=== PATIENT | male | born 1945 | race Two or more races ===

== ENCOUNTER 2022-10-01 12:13 | Inpatient (IN) | payer MEDICARE ==
--- NOTE | 2022-10-01 13:26 | ED ---
ENT HPI - General Source: patient, RN notes reviewed Mode of arrival: ambulatory Limitations: no limitations <Chema Pedro - Last Filed: 10/01/22 15:08> <Redd Miller - Last Filed: 10/01/22 16:08> - General Chief complaint: Dental/Oral Stated complaint: dental infection Time Seen by Provider: 10/01/22 13:11 - History of Present Illness Initial comments: Patient is a 77 year old male presenting to the ER with a chief complaint of right sided facial swelling and pain. Patient had a molar removed last week and now has a dry socket. Patient states his dentist, Dr. Jimenez, has packed it twice and treated him with 2 rounds of clindamycin with no relief. Patient has also been taking [place] for pain. Patient states last night he was barley able to open his mouth to eat due to pain. Patient denies trouble breathing but does admit to difficulty swallowing liquids. Patient also endorses associated chills last night. Denies fevers. Patient was seen in Dr. Jimenez's office today and received an xray and was then referred to the ER for evaluation. (Chema Pedro) - Related Data Allergies Allergy/AdvReac Type Severity Reaction Status Date / Time Penicillins Allergy Unknown Verified 10/01/22 15:31 Childhood Review of Systems ROS Other: All systems not noted in ROS Statement are negative. <Chema Pedro - Last Filed: 10/01/22 15:08> ROS Other: All systems not noted in ROS Statement are negative. <Redd Miller - Last Filed: 10/01/22 16:08> ROS Statement: Those systems with pertinent positive or pertinent negative responses have been documented in the HPI. Past Medical History Past Medical History: Diabetes Mellitus, Hyperlipidemia, Hypertension, Osteoarthritis (OA) History of Any Multi-Drug Resistant Organisms: None Reported Past Surgical History: No Surgical Hx Reported Past Psychological History: No Psychological Hx Reported Smoking Status: Never smoker Past Alcohol Use History: None Reported Past Drug Use History: None Reported <Chema Pedro - Last Filed: 10/01/22 15:08> General Exam Limitations: no limitations General appearance: alert, in no apparent distress Head exam: Present: atraumatic, normocephalic, normal inspection Eye exam: Present: normal appearance, PERRL, EOMI. Absent: scleral icterus, conjunctival injection, periorbital swelling ENT exam: Present: mucous membranes dry Neck exam: Present: tenderness, other (right sided edema; hard tender mass noted under mandible on right side) Respiratory exam: Present: normal lung sounds bilaterally. Absent: respiratory distress, wheezes, rales, rhonchi, stridor Cardiovascular Exam: Present: regular rate, normal rhythm, normal heart sounds. Absent: systolic murmur, diastolic murmur, rubs, gallop, clicks GI/Abdominal exam: Present: soft, normal bowel sounds. Absent: distended, tenderness, guarding, rebound, rigid Extremities exam: Present: normal inspection, full ROM, normal capillary refill. Absent: tenderness, pedal edema, joint swelling, calf tenderness Back exam: Present: normal inspection Neurological exam: Present: alert, oriented X3, CN II-XII intact Psychiatric exam: Present: normal affect, normal mood Skin exam: Present: warm, dry, intact, normal color. Absent: rash <Chema Pedro - Last Filed: 10/01/22 15:08> Course Vital Signs 10/01/22 13:07 Temperature 98 F Pulse Rate 87 Respiratory 18 Rate Blood Pressure 141/75 O2 Sat by Pulse 96 Oximetry Medical Decision Making - Lab Data Result diagrams: 10/01/22 13:54 10/01/22 13:54 <Chema Pedro - Last Filed: 10/01/22 15:08> - Lab Data Result diagrams: 10/01/22 13:54 10/01/22 13:54 - Radiology Data Radiology results: report reviewed (CT shows soft tissue swelling right submandibular region concerning for phlegmon.) <Redd Miller - Last Filed: 10/01/22 16:08> - Medical Decision Making 77-year-old sent in for admission for recurrent thoracic, dental infection. Patient's case discussed with Dr. Jasso, patient was started on cefepime, v ancomycin patient with consult to oral surgery (Chema Pedro) I did also reevaluate the patient. Patient swelling is right submandibular region. No midline swelling. No submental swelling or tenderness or firmness. No evidence of airway impingement clinically. Patient is advised to notify staff if symptoms appear to be worsening at all. Patient states symptoms are ac tually significantly improved from yesterday. (Redd Miller) - Lab Data Lab Results 10/01/22 10/01/22 10/01/22 Range/Units 13:54 13:54 13:54 WBC 15.3 H (3.8-10.6) k/uL RBC 4.71 (4.30-5.90) m/uL Hgb 14.1 (13.0-17.5) gm/dL Hct 42.3 (39.0-53.0) % MCV 89.7 (80.0-100.0) fL MCH 29.9 (25.0-35.0) pg MCHC 33.3 (31.0-37.0) g/dL RDW 14.0 (11.5-15.5) % Plt Count 306 (150-450) k/uL MPV 7.9 Neutrophils % 86 % Lymphocytes % 7 % Monocytes % 5 % Eosinophils % 1 % Basophils % 0 % Neutrophils # 13.0 H (1.3-7.7) k/uL Lymphocytes # 1.1 (1.0-4.8) k/uL Monocytes # 0.7 (0-1.0) k/uL Eosinophils # 0.1 (0-0.7) k/uL Basophils # 0.0 (0-0.2) k/uL Sodium 140 (137-145) mmol/L Potassium 4.1 (3.5-5.1) mmol/L Chloride 104 (98-107) mmol/L Carbon Dioxide 27 (22-30) mmol/L Anion Gap 9 mmol/L BUN 27 H (9-20) mg/dL Creatinine 1.22 (0.66-1.25) mg/dL Est GFR (CKD-EPI)AfAm 67 (>60 ml/min/1.73 sqM) Est GFR (CKD-EPI)NonAf 58 (>60 ml/min/1.73 sqM) Glucose 170 H (74-99) mg/dL Plasma Lactic Acid Brady 1.0 (0.7-2.0) mmol/L Calcium 9.2 (8.4-10.2) mg/dL Total Bilirubin 0.6 (0.2-1.3) mg/dL AST 27 (17-59) U/L ALT 32 (4-49) U/L Alkaline Phosphatase 81 (38-126) U/L Total Protein 6.6 (6.3-8.2) g/dL Albumin 4.0 (3.5-5.0) g/dL Disposition Time of Disposition: 14:34 <Chema Pedro - Last Filed: 10/01/22 15:08> <Redd Miller - Last Filed: 10/01/22 16:08> Clinical Impression: Dental abscess, Failure of outpatient treatment, Dry socket Disposition: ADMITTED IP TO THIS HOSP Condition: Fair
[2022-10-01 14:27] LABS: Basophils % (A) 0 %; Eosinophils # (A) 0.1 k/uL (0-0.7); Eosinophils % (A) 1 %; HCT 42.3 % (39.0-53.0); HGB 14.1 gm/dL (13.0-17.5); Lymphocytes # (A) 1.1 k/uL (1.0-4.8); Lymphocytes % (A) 7 %; MCH 29.9 pg (25.0-35.0); MCHC 33.3 g/dL (31.0-37.0); MCV 89.7 fL (80.0-100.0); Mean Platelet Volume 7.9; Monocytes # (A) 0.7 k/uL (0-1.0); Monocytes % (A) 5 %; Neutrophils % (A) 86 %; Platelet Count 306 k/uL (150-450); RBC 4.71 m/uL (4.30-5.90); WBC 15.3 k/uL (3.8-10.6)
[2022-10-01 14:47] LABS: Calcium 9.2 mg/dL (8.4-10.2); Potassium 4.1 mmol/L (3.5-5.1); Total Bilirubin 0.6 mg/dL (0.2-1.3); Total Protein 6.6 g/dL (6.3-8.2)
[2022-10-01] MEDS ORDERED: VANCOMYCIN IV PER PHARMACY 1 EACH MISC MISCELLANE PRN (15:08)
[2022-10-01] MEDS ORDERED: ACETAMINOPHEN TAB 325 MG TAB PO PRN (15:09)
[2022-10-01] MEDS ORDERED: ONDANSETRON 4 MG/2 ML VIAL IVP PRN (15:09)
[2022-10-01] MEDS ORDERED: HYDROcodone/APAP 5-325MG 1 EACH TAB PO PRN (15:09)
[2022-10-01] MEDS ORDERED: NALOXONE 0.4 MG/ML 1 ML VIAL IV PRN (15:09)
--- NOTE | 2022-10-01 15:32 | CT ---
EXAMINATION TYPE: CT soft tissue neck w con DATE OF EXAM: 10/01/2022 COMPARISON: None HISTORY: Dental abscess, dry socket CT DLP: 246.8 mGycm CONTRAST: Patient injected with 80 mL of Isovue 300. TECHNIQUE: Axial images at 3 mm thick sections. Reconstructed images in the coronal plane and sagitt al plane are reviewed. FINDINGS: Limited CT sections are obtained the lung apices. The lung apices appear clear. CT neck: The torus tubarius and fossa of Rosenmuller are normal. Telephone Order Supervisor spaces are normal. Para nasal sinuses and mastoid air cells are clear. Parotid glands appear normal and symmetrical. Submandibular glands, are normal. Parapharyngeal spac es are normal. Scattered bilateral lymph nodes are present There is some enlarged adenopathy within the submandibular region which measures 1.0 cm. This is just below a soft tissue area of thickening with some displacement of the fat space of the submental chong on. This area measures approximately 2.5 x 4.7 cm. No central fluid collection is evident. Phlegmon c onsidered. Correlate with the patient's symptoms. This appears to have mild mass effect on the hypoph arynx. Vocal cord level appear symmetrical. Thyroid as visualized is normal. Osseous structures are normal. IMPRESSIONS: 1. Soft tissue thickening along the submandibular region on the right adjacent to the mandible. Corre late for phlegmon. Report was called and case discussed with the ER physician by Dr. Morgan by adeola townsend at the time of interpretation.
[2022-10-01] MEDS ORDERED: VANCOMYCIN 1,500 MG in SODIUM CHLORIDE 0.9% 500 ML 500 ML IVPB ONE (16:00)
[2022-10-01] MEDS ORDERED: CALCIUM CARBONATE 500 MG CHEWABLE PO PRN (16:45)
[2022-10-01] MEDS ORDERED: LACTULOSE 20 GM/30 ML CUP PO PRN (16:45)
[2022-10-01] MEDS ORDERED: TEMAZEPAM 15 MG CAP PO PRN (16:45)
[2022-10-01] MEDS ORDERED: DEXTROSE 50% SYRINGE 50 ML IVP PRN ×2 (16:46)
[2022-10-01 18:06] LABS: Glucose,Whole Blood 281 mg/dL (70-110)
[2022-10-01] MEDS: metFORMIN 500 MG TAB PO SCH ×2 (18:20→21:51)
[2022-10-01] MEDS: ENOXAPARIN 40 MG/0.4 ML SYRINGE SQ SCH (18:20)
[2022-10-01] MEDS: NAPROXEN 250 MG TAB PO SCH ×2 (18:20→21:51)
[2022-10-01] MEDS: INSULIN ASPART (NovoLOG) 100 UNIT/ML VIAL SQ SCH (18:21)
[2022-10-01 20:34] LABS: Glucose,Whole Blood 80 mg/dL (70-110)
[2022-10-01] MEDS ORDERED: CEFEPIME 2 GM in SODIUM CHLORIDE 0.9% 100 ML IVPB SCH (21:00)
[2022-10-02 07:14] LABS: Glucose,Whole Blood 105 mg/dL (70-110)
[2022-10-02] MEDS: INSULIN ASPART (NovoLOG) 100 UNIT/ML VIAL SQ SCH ×3 (08:32→17:25)
[2022-10-02] MEDS: lisinopriL 20 MG TAB PO SCH (08:48)
[2022-10-02] MEDS: ASPIRIN 81 MG PO SCH (08:48)
[2022-10-02] MEDS: ATORVASTATIN 20 MG TAB PO SCH (08:48)
[2022-10-02] MEDS: CEFEPIME 2 GM in SODIUM CHLORIDE 0.9% 100 ML IVPB SCH ×2 (08:49→16:16)
[2022-10-02] MEDS: metFORMIN 500 MG TAB PO SCH ×3 (08:49→21:46)
[2022-10-02] MEDS: FOLIC ACID 1 MG TAB PO SCH (08:49)
[2022-10-02] MEDS: amLODIPine 10 MG TAB PO SCH (08:49)
[2022-10-02] MEDS: NAPROXEN 250 MG TAB PO SCH ×3 (08:50→21:46)
[2022-10-02] MEDS: VANCOMYCIN 1,500 MG in SODIUM CHLORIDE 0.9% 500 ML 500 ML IVPB SCH (08:50)
[2022-10-02] MEDS: ENOXAPARIN 40 MG/0.4 ML SYRINGE SQ SCH (09:28)
[2022-10-02 11:20] LABS: Glucose,Whole Blood 165 mg/dL (70-110)
[2022-10-02] MEDS ORDERED: MELATONIN 3 MG TABLET PO PRN (11:59)
--- NOTE | 2022-10-02 16:11 | P.HPIM ---
History of Present Illness H&P Date: 10/02/22 Chief Complaint: Right face swelling This is a 77-year-old patient who follows with Dr. Po Schumacher. Chronic stable medical conditions include diabetes, hypertension, hyperlipidemia, osteoarthritis. Patient on the right side of the mouth had his tooth #31 diagnosed with a crack and had it pulled 2 weeks ago by . He's had 2 follow-up cesareans. Including packing been dense. About 10 days ago he startedseeing of swelling of the right side of the face. We just progressively became more painful. He's had chills at night including shivering and perspiring. He did having trouble eating and opening his mouth. He's received a course of clindamycin as outpatient. He did have a further follow-up with his dianeticist and was then sent to the ER. I started the patient IV vancomycin and cefepime. Also started him on naproxen. Overnight patient's feeling a bit better unable to open his mouth. He was barely able to eat prior to that. Did tolerate a soft breakfast this morning. Review of systems: GEN.: Tired EYES: None HEENT: As above NECK: None RESPIRATORY: None CARDIOVASCULAR: None GASTROINTESTINAL: None GENITOURINARY: None MUSCULOSKELETAL: Joint pains LYMPHATICS: None HEMATOLOGICAL: None PSYCHIATRY: None NEUROLOGICAL: None Past medical history to include: Diabetes, hypertension, hyperlipidemia, stroke arthritis. Social history: Patient does not smoke or drink alcohol. . Is a practicing transactional attorney. Family history: Reviewed, noncontributory to presentation Physical examination: VITAL SIGNS: 97.7, 65, 17, 144/87, 97% room air GENERAL: BMI 23.1, average build, reclining in bed, awake, comfortable. EYES: Pupils equal. Conjunctiva normal. HEENT: From swelling below the right mandible, tender also from inside the mouth.. NECK: JVD not raised; masses not palpable. HEART: First and second heart sounds are normal; no edema. LUNGS: Respiratory rate normal; clear to auscultation. ABDOMEN: Soft, nontender, liver spleen not palpable, no masses palpable. PSYCH: Alert and oriented x3; mood and affect normal. MUSCULOSKELETAL:No Clubbing/cyanosis;muscles-grossly intact, oa NEUROLOGICAL: Cranial nerves grossly intact; no facial asymmetry, power and sensation grossly intact. LYMPHATICS: No lymph nodes palpable in the axilla and neck INVESTIGATIONS, reviewed in the clinical context: White count 15.3 hemoglobin 14.1 platelets 306 potassium 4.1 BUN 27 creatinine 1.2 to pro-calcitonin 0.[address] submandibular area: Soft tissue thickening along the submandibular region of the right adjacent to the mandible correlate for phlegmon. Assessment and plan: -Probable phlegmon at the site of extracted tooth 31 that had a fractured wrist. 2 weeks ago by . Patient had received outpatient clindamycin. Patient had progressed to increased swelling and chills at night. Patient does have elevated white count. Patient started IV vancomycin and IV cefepime. Blood cultures pending. Dr. Jimenez's been consulted. Soft diet -Essential hypertension Norvasc, ramipril Hyperlipidemia Lipitor -Diabetes mellitus type 2 on oral hypoglycemic Glucophage. Follow Accu-Cheks IV vancomycin. IV cefepime. Naproxen. IV fluids. Resume home medications. Follow Accu-Cheks. Consult Dr. mart. Care was discussed with the patient. Questions answered. Past Medical History Past Medical History: Diabetes Mellitus, Hyperlipidemia, Hypertension, Osteoart hritis (OA) History of Any Multi-Drug Resistant Organisms: None Reported Past Surgical History: Appendectomy, Tonsillectomy Past Anesthesia/Blood Transfusion Reactions: No Reported Reaction Past Psychological History: No Psychological Hx Reported Smoking Status: Never smoker Past Alcohol Use History: None Reported Past Drug Use History: None Reported Medications and Allergies Home Medications Medication Instructions Recorded Confirmed Type Acetaminophen-Codeine 300-30mg 1 tab PO Q4H PRN 10/01/22 10/01/22 History [Tylenol w/codeine #3] Aspirin EC [Ecotrin Low Dose] 81 mg PO DAILY 10/01/22 10/01/22 History Atorvastatin [Lipitor] 20 mg PO DAILY 10/01/22 10/01/22 History Folic Acid 1 mg PO DAILY 10/01/22 10/01/22 History Ibuprofen [Motrin Ib] 600 mg PO Q8H PRN 10/01/22 10/01/22 History amLODIPine [Norvasc] 10 mg PO DAILY 10/01/22 10/01/22 History clindamycin HCL [Cleocin HCl] 300 mg PO TID 10/01/22 10/01/22 History metFORMIN HCL ER [Glucophage XR] 500 mg PO TID 10/01/22 10/01/22 History metHOTREXate sodium [Methotrexate] 10 mg PO EDDY 10/01/22 10/01/22 History ramipriL [Altace] 10 mg PO BID 10/01/22 10/01/22 History Allergies Allergy/AdvReac Type Severity Reaction Status Date / Time Penicillins Allergy Unknown Verified 10/01/22 15:31 Childhood Physical Exam Vitals: Vital Signs Temp Pulse Pulse Resp BP BP Pulse Ox 10/02/22 07:39 97.7 F 65 17 144/87 97 10/02/22 04:25 97.4 F L 74 16 129/78 94 L 10/01/22 19:10 98.5 F 86 16 123/77 96 10/01/22 16:31 87 15 144/84 97 10/01/22 13:07 98 F 87 18 141/75 96 Intake and Output 10/01/22 10/02/22 10/02/22 22:59 06:59 14:59 Intake Total 120 Output Total 2 Balance 120 -2 Intake: Oral 120 Output: Urine 2 Other: Weight 77.111 kg Results CBC & Chem 7: 10/01/22 13:54 10/02/22 05:48 Labs: Abnormal Lab Results - Last 24 Hours (Table) 10/01/22 10/01/22 10/01/22 Range/Units 13:54 13:54 18:05 WBC 15.3 H (3.8-10.6) k/uL Neutrophils # 13.0 H (1.3-7.7) k/uL BUN 27 H (9-20) mg/dL Glucose 170 H (74-99) mg/dL POC Glucose (mg/dL) 281 H (70-110) mg/dL Procalcitonin (0.02-0.09) ng/mL 10/02/22 Range/Units 05:48 WBC (3.8-10.6) k/uL Neutrophils # (1.3-7.7) k/uL BUN (9-20) mg/dL Glucose (74-99) mg/dL POC Glucose (mg/dL) (70-110) mg/dL Procalcitonin 0.46 H (0.02-0.09) ng/mL Thrombosis Risk Factor Assmnt - Choose All That Apply Any of the Below Risk Factors Present?: No Other Risk Factors: Yes Each Risk Factor Represents 2 Points: Age 61-74 years Other congenital or acquired thrombophilia - If yes, enter type in comment: No Thrombosis Risk Factor Assessment Total Risk Factor Score: 2 Thrombosis Risk Factor Assessment Level: Low Risk
[2022-10-02] MEDS: SODIUM CHLORIDE 0.9% 1,000 ML IV SCH (16:18)
[2022-10-02 17:14] LABS: Glucose,Whole Blood 122 mg/dL (70-110)
[2022-10-02 20:08] LABS: Glucose,Whole Blood 174 mg/dL (70-110)
[2022-10-03] MEDS: CEFEPIME 2 GM in SODIUM CHLORIDE 0.9% 100 ML IVPB SCH ×4 (00:01→23:55)
[2022-10-03] MEDS: VANCOMYCIN 1,500 MG in SODIUM CHLORIDE 0.9% 500 ML 500 ML IVPB SCH ×3 (00:01→23:54)
[2022-10-03] MEDS: SODIUM CHLORIDE 0.9% 1,000 ML IV SCH ×4 (00:01→23:30)
[2022-10-03 04:12] LABS: African American GFR (CKD) 90 (>60 ml/min/1.73 sqM); Anion Gap 5 mmol/L; Blood Urea Nitrogen 20 mg/dL (9-20); Calcium 7.9 mg/dL (8.4-10.2); Carbon Dioxide 27 mmol/L (22-30); Chloride 107 mmol/L (98-107); Glucose 89 mg/dL (74-99); Non-African American GFR(CKD) 78 (>60 ml/min/1.73 sqM); Sodium 139 mmol/L (137-145)
[2022-10-03 07:12] LABS: Glucose,Whole Blood 98 mg/dL (70-110)
[2022-10-03] MEDS: INSULIN ASPART (NovoLOG) 100 UNIT/ML VIAL SQ SCH ×3 (07:46→17:11)
[2022-10-03] MEDS: amLODIPine 10 MG TAB PO SCH (08:13)
[2022-10-03] MEDS: metFORMIN 500 MG TAB PO SCH ×3 (08:13→21:03)
[2022-10-03] MEDS: FOLIC ACID 1 MG TAB PO SCH (08:13)
[2022-10-03] MEDS: lisinopriL 20 MG TAB PO SCH (08:13)
[2022-10-03] MEDS: ATORVASTATIN 20 MG TAB PO SCH (08:13)
[2022-10-03] MEDS: ENOXAPARIN 40 MG/0.4 ML SYRINGE SQ SCH (08:13)
[2022-10-03] MEDS: ASPIRIN 81 MG PO SCH (08:13)
[2022-10-03] MEDS: NAPROXEN 250 MG TAB PO SCH ×3 (08:14→21:02)
[2022-10-03 11:08] LABS: Glucose,Whole Blood 99 mg/dL (70-110)
--- NOTE | 2022-10-03 16:33 | P.PN ---
Progress Note - Text Progress Note Date: 10/03/22 Chief Complaint: Right face swelling This is a 77-year-old patient who follows with Dr. Po Schumacher. Chronic stable medical conditions include diabetes, hypertension, hyperlipidemia, osteoarthritis. Patient on the right side of the mouth had his tooth #31 diagnosed with a crack and had it pulled 2 weeks ago by . He's had 2 follow-up cesareans. Including packing been dense. About 10 days ago he startedseeing of swelling of the right side of the face. We just progressively became more painful. He's had chills at night including shivering and perspiring. He did having trouble eating and opening his mouth. He's received a course of clindamycin as outp atient. He did have a further follow-up with his medical assisting instructor and was then sent to the ER. I started the patient IV vancomycin and cefepime. Also started him on naproxen. Overnight patient's feeling a bit better unable to open his mouth. He was barely able to eat prior to that. Did tolerate a soft breakfast this morning. 10/03/2022: Feeling better this morning. No fever. Tolerating a soft diet. He would open his mouth better. Was seen by Dr. mart last night. I discussed the case with Dr. mart last night. Getting IV cefepime and vancomycin. Cultures negative to rule out. Right facial jaw swelling going down. Active Medications Acetaminophen (Acetaminophen Tab 325 Mg Tab) 650 mg PO Q6HR PRN PRN Reason: Mild Pain or Fever > 100.5 Hydrocodone Bitart/Acetaminophen (Hydrocodone/Apap 5-325mg 1 Each Tab) 1 each PO Q4HR PRN PRN Reason: Moderate Pain (Scale 4 to 6) Amlodipine Besylate (Amlodipine 10 Mg Tab) 10 mg PO DAILY [facility] Last Admin: 10/03/22 08:13 Dose: 10 mg Aspirin (Aspirin 81 Mg) 81 mg PO DAILY [facility] Last Admin: 10/03/22 08:13 Dose: 81 mg Atorvastatin Calcium (Atorvastatin 20 Mg Tab) 20 mg PO DAILY [facility] Last Admin: 10/03/22 08:13 Dose: 20 mg Calcium Carbonate/Glycine (Calcium Carbonate 500 Mg Chewable) 1,000 mg PO Q4HR PRN PRN Reason: Dyspepsia Dextrose/Water (Dextrose 50% Syringe 50 Ml) 25 ml IVP PER PROTOCOL PRN; Protocol PRN Reason: Hypoglycemia Dextrose/Water (Dextrose 50% Syringe 50 Ml) 50 ml IVP PER PROTOCOL PRN; Protocol PRN Reason: Hypoglycemia Enoxaparin Sodium (Enoxaparin 40 Mg/0.4 Ml Syringe) 40 mg SQ DAILY [facility] Last Admin: 10/03/22 08:13 Dose: 40 mg Folic Acid (Folic Acid 1 Mg Tab) 1 mg PO DAILY [facility] Last Admin: 10/03/22 08:13 Dose: 1 mg Cefepime HCl 2 gm/ Sodium (Chloride) 100 mls @ 25 mls/hr IVPB Q8HR [facility]; Protocol Last Admin: 10/03/22 08:11 Dose: 25 mls/hr Sodium Chloride (Saline 0.9%) 1,000 mls @ 130 mls/hr IV .Q7H42M [facility] Last Admin: 10/03/22 16:30 Dose: Not Given Vancomycin HCl 1,500 mg/ (Sodium Chloride) 500 mls @ 167 mls/hr IVPB Q12H [facility] Last Admin: 10/03/22 11:32 Dose: 167 mls/hr Insulin Aspart (Insulin Aspart (Novolog) 100 Unit/Ml Vial) 0 unit SQ AC-TID [facility]; Protocol Last Admin: 10/03/22 11:29 Dose: Not Given Lactulose (Lactulose 20 Gm/30 Ml Cup) 20 gm PO DAILY PRN PRN Reason: Constipation Lisinopril (Lisinopril 20 Mg Tab) 80 mg PO DAILY [facility] Last Admin: 10/03/22 08:13 Dose: 80 mg Melatonin (Melatonin 3 Mg Tablet) 3 mg PO HS PRN PRN Reason: Insomnia Last Admin: 10/02/22 21:47 Dose: 3 mg Metformin HCl (Metformin 500 Mg Tab) 500 mg PO TID [facility] Last Admin: 10/03/22 15:19 Dose: 500 mg Methotrexate (Methotrexate Sodium 2.5 Mg Tab) 10 mg PO EDDY [facility] Miscellaneous Information (Vancomycin Trough Due 1 Each Misc) 0 each MISCELLANE DIRECTED ONE Stop: 10/03/22 23:01 Naloxone HCl (Naloxone 0.4 Mg/Ml 1 Ml Vial) 0.2 mg IV Q2M PRN PRN Reason: Opioid Reversal Naproxen (Naproxen 250 Mg Tab) 250 mg PO TID [facility] Last Admin: 10/03/22 15:43 Dose: 250 mg Ondansetron HCl (Ondansetron 4 Mg/2 Ml Vial) 4 mg IVP Q8HR PRN PRN Reason: Nausea And Vomiting Temazepam (Temazepam 15 Mg Cap) 15 mg PO HS PRN PRN Reason: Insomnia Past medical history to include: Diabetes, hypertension, hyperlipidemia, stroke arthritis. Social history: Patient does not smoke or drink alcohol. . Is a practicing estate attorney. Family history: Reviewed, noncontributory to presentation Physical examination: VITAL SIGNS: Afebrile, 65, 17, 161/81, 96% room air GENERAL: BMI 23.1, average build, reclining in bed, awake, comfortable. EYES: Pupils equal. Conjunctiva normal. HEENT: Decreased firm swelling below the right mandible, tender also from inside the mouth.. NECK: JVD not raised; masses not palpable. HEART: First and second heart sounds are normal; no edema. LUNGS: Respiratory rate normal; clear to auscultation. ABDOMEN: Soft, nontender, liver spleen not palpable, no masses palpable. PSYCH: Alert and oriented x3; mood and affect normal. MUSCULOSKELETAL:No Clubbing/cyanosis;muscles-grossly intact, oa INVESTIGATIONS, reviewed in the clinical context: 10/03/2022: Potassium 4. 20 creatinine 0.96 White count 15.3 hemoglobin 14.1 platelets 306 potassium 4.1 BUN 27 creatinine 1.2 to pro-calcitonin 0.[address] submandibular area: Soft tissue thickening along the submandibular region of the right adjacent to the mandible correlate for phlegmon. Assessment and plan: -Probable phlegmon at the site of extracted tooth 31 that had a fractured wrist. 2 weeks ago by . Patient had received outpatient clindamycin. Patient had progressed to increased swelling and chills at night. Patient does have elevated white count. IV vancomycin and IV cefepime. Blood cultures pending.: Improving -Essential hypertension Norvasc, ramipril Hyperlipidemia Lipitor -Diabetes mellitus type 2 on oral hypoglycemic Glucophage. Follow Accu-Cheks IV vancomycin. IV cefepime. Naproxen. IV fluids. Discussed with patient. Repeat labs.
[2022-10-03 17:09] LABS: Glucose,Whole Blood 119 mg/dL (70-110)
[2022-10-03 20:56] LABS: Glucose,Whole Blood 158 mg/dL (70-110)
[2022-10-03] MEDS ORDERED: VANCOMYCIN TROUGH DUE 1 EACH MISC MISCELLANE ONE (23:00)
[2022-10-04 07:04] LABS: Glucose,Whole Blood 104 mg/dL (70-110)
[2022-10-04] MEDS: INSULIN ASPART (NovoLOG) 100 UNIT/ML VIAL SQ SCH ×3 (09:51→18:29)
[2022-10-04] MEDS: FOLIC ACID 1 MG TAB PO SCH (10:04)
[2022-10-04] MEDS: ASPIRIN 81 MG PO SCH (10:04)
[2022-10-04] MEDS: lisinopriL 20 MG TAB PO SCH (10:04)
[2022-10-04] MEDS: metFORMIN 500 MG TAB PO SCH ×3 (10:05→20:33)
[2022-10-04] MEDS: CEFEPIME 2 GM in SODIUM CHLORIDE 0.9% 100 ML IVPB SCH ×2 (10:05→16:19)
[2022-10-04] MEDS: ATORVASTATIN 20 MG TAB PO SCH (10:05)
[2022-10-04] MEDS: NAPROXEN 250 MG TAB PO SCH ×3 (10:06→20:32)
[2022-10-04] MEDS: ENOXAPARIN 40 MG/0.4 ML SYRINGE SQ SCH (10:08)
[2022-10-04] MEDS: amLODIPine 10 MG TAB PO SCH (10:08)
[2022-10-04 11:21] LABS: Glucose,Whole Blood 195 mg/dL (70-110)
[2022-10-04 12:11] LABS: Basophils # (A) 0.1 k/uL (0-0.2); Basophils % (A) 1 %; Eosinophils # (A) 0.2 k/uL (0-0.7); Eosinophils % (A) 3 %; HCT 40.7 % (39.0-53.0); HGB 13.5 gm/dL (13.0-17.5); Lymphocytes # (A) 0.9 k/uL (1.0-4.8); Lymphocytes % (A) 14 %; MCV 90.8 fL (80.0-100.0); Monocytes # (A) 0.2 k/uL (0-1.0); Monocytes % (A) 3 %; Neutrophils # (A) 4.8 k/uL (1.3-7.7); Neutrophils % (A) 77 %; Platelet Count 356 k/uL (150-450); RBC 4.49 m/uL (4.30-5.90); RDW 14.1 % (11.5-15.5); WBC 6.3 k/uL (3.8-10.6)
[2022-10-04 12:21] LABS: African American GFR (CKD) >90 (>60 ml/min/1.73 sqM); Non-African American GFR(CKD) 89 (>60 ml/min/1.73 sqM)
--- NOTE | 2022-10-04 13:46 | P.PN ---
Progress Note - Text Progress Note Date: 10/04/22 Chief Complaint: Right face swelling This is a 77-year-old patient who follows with Dr. Po Schumacher. Chronic stable medical conditions include diabetes, hypertension, hyperlipidemia, osteoarthritis. Patient on the right side of the mouth had his tooth #31 diagnosed with a crack and had it pulled 2 weeks ago by . He's had 2 follow-up cesareans. Including packing been dense. About 10 days ago he startedseeing of swelling of the right side of the face. We just progressively became more painful. He's had chills at night including shivering and perspiring. He did having trouble eating and opening his mouth. He's received a course of clindamycin as outp atient. He did have a further follow-up with his garment folder and was then sent to the ER. I started the patient IV vancomycin and cefepime. Also started him on naproxen. Overnight patient's feeling a bit better unable to open his mouth. He was barely able to eat prior to that. Did tolerate a soft breakfast this morning. 10/03/2022: Feeling better this morning. No fever. Tolerating a soft diet. He would open his mouth better. Was seen by Dr. mart last night. I discussed the case with Dr. mart last night. Getting IV cefepime and vancomycin. Cultures negative to rule out. Right facial jaw swelling going down. 10/04/2022: Able to open mouth better. Not fully so. Some right-sided pain still present. No fever no chills. Discussed with patient. We'll give another 24 hours of IV antibiotics. Blood cultures negative at 48 hours. Active Medications Acetaminophen (Acetaminophen Tab 325 Mg Tab) 650 mg PO Q6HR PRN PRN Reason: Mild Pain or Fever > 100.5 Hydrocodone Bitart/Acetaminophen (Hydrocodone/Apap 5-325mg 1 Each Tab) 1 each PO Q4HR PRN PRN Reason: Moderate Pain (Scale 4 to 6) Amlodipine Besylate (Amlodipine 10 Mg Tab) 10 mg PO DAILY [facility] Last Admin: 10/04/22 10:08 Dose: 10 mg Aspirin (Aspirin 81 Mg) 81 mg PO DAILY [facility] Last Admin: 10/04/22 10:04 Dose: 81 mg Atorvastatin Calcium (Atorvastatin 20 Mg Tab) 20 mg PO DAILY [facility] Last Admin: 12/01/22 10:05 Dose: 20 mg Calcium Carbonate/Glycine (Calcium Carbonate 500 Mg Chewable) 1,000 mg PO Q4HR PRN PRN Reason: Dyspepsia Dextrose/Water (Dextrose 50% Syringe 50 Ml) 25 ml IVP PER PROTOCOL PRN; Protocol PRN Reason: Hypoglycemia Dextrose/Water (Dextrose 50% Syringe 50 Ml) 50 ml IVP PER PROTOCOL PRN; Protocol PRN Reason: Hypoglycemia Enoxaparin Sodium (Enoxaparin 40 Mg/0.4 Ml Syringe) 40 mg SQ DAILY [facility] Last Admin: 10/04/22 10:08 Dose: 40 mg Folic Acid (Folic Acid 1 Mg Tab) 1 mg PO DAILY [facility] Last Admin: 10/04/22 10:04 Dose: 1 mg Cefepime HCl 2 gm/ Sodium (Chloride) 100 mls @ 25 mls/hr IVPB Q8HR [facility]; Protocol Last Admin: 10/04/22 10:05 Dose: 25 mls/hr Sodium Chloride (Saline 0.9%) 1,000 mls @ 130 mls/hr IV .Q7H42M [facility] Last Admin: 10/03/22 23:30 Dose: 130 mls/hr Vancomycin HCl 1,500 mg/ (Sodium Chloride) 500 mls @ 167 mls/hr IVPB Q12H [facility] Last Admin: 10/03/22 23:54 Dose: 167 mls/hr Insulin Aspart (Insulin Aspart (Novolog) 100 Unit/Ml Vial) 0 unit SQ AC-TID [facility]; Protocol Last Admin: 10/04/22 09:51 Dose: Not Given Lactulose (Lactulose 20 Gm/30 Ml Cup) 20 gm PO DAILY PRN PRN Reason: Constipation Lisinopril (Lisinopril 20 Mg Tab) 80 mg PO DAILY [facility] Last Admin: 10/04/22 10:04 Dose: 80 mg Melatonin (Melatonin 3 Mg Tablet) 3 mg PO HS PRN PRN Reason: Insomnia Last Admin: 10/02/22 21:47 Dose: 3 mg Metformin HCl (Metformin 500 Mg Tab) 500 mg PO TID [facility] Last Admin: 10/04/22 10:05 Dose: 500 mg Methotrexate (Methotrexate Sodium 2.5 Mg Tab) 10 mg PO EDDY [facility] Naloxone HCl (Naloxone 0.4 Mg/Ml 1 Ml Vial) 0.2 mg IV Q2M PRN PRN Reason: Opioid Reversal Naproxen (Naproxen 250 Mg Tab) 250 mg PO TID [facility] Last Admin: 10/04/22 10:06 Dose: 250 mg Ondansetron HCl (Ondansetron 4 Mg/2 Ml Vial) 4 mg IVP Q8HR PRN PRN Reason: Nausea And Vomiting Temazepam (Temazepam 15 Mg Cap) 15 mg PO HS PRN PRN Reason: Insomnia Past medical history to include: Diabetes, hypertension, hyperlipidemia, stroke arthritis. Social history: Patient does not smoke or drink alcohol. . Is a practicing business attorney. Family history: Reviewed, noncontributory to presentation Physical examination: VITAL SIGNS: 97.6, 68, 20, 152/82, 99% room air GENERAL: Sitting up, awake, comfortable. EYES: Pupils equal. Conjunctiva normal. HEENT: Decreased firm swelling below the right mandible, able to open mouth better NECK: JVD not raised; masses not palpable. HEART: First and second heart sounds are normal; no edema. LUNGS: Respiratory rate normal; clear to auscultation. ABDOMEN: Soft, nontender, liver spleen not palpable, no masses palpable. PSYCH: Alert and oriented x3; mood and affect normal. MUSCULOSKELETAL:No Clubbing/cyanosis;muscles-grossly intact, oa INVESTIGATIONS, reviewed in the clinical context: 10/04/2022: White count 6.3 hemoglobin 13.5 platelets 356 10/03/2022: Potassium 4. 20 creatinine 0.96 White count 15.3 hemoglobin 14.1 platelets 306 potassium 4.1 BUN 27 creatinine 1.2 to pro-calcitonin 0.[address] submandibular area: Soft tissue thickening along the submandibular region of the right adjacent to the mandible correlate for phlegmon. Assessment and plan: -Probable phlegmon at the site of extracted tooth 31 that had a fractured wrist. 2 weeks ago by . Patient had received outpatient clindamycin. Patient had progressed to increased swelling and chills at night. Patient does have elevated white count. IV vancomycin and IV cefepime. Blood cultures negative at 48 hours.: Improving -Essential hypertension Norvasc, ramipril Hyperlipidemia Lipitor -Diabetes mellitus type 2 on oral hypoglycemic Glucophage. Follow Accu-Cheks IV vancomycin. IV cefepime. Naproxen. Another 24 hours of IV antibiotics. Hopefully discharge tomorrow. Awaiting cultures.
[2022-10-04] MEDS: VANCOMYCIN 1,500 MG in SODIUM CHLORIDE 0.9% 500 ML 500 ML IVPB SCH (15:00)
[2022-10-04] MEDS: SODIUM CHLORIDE 0.9% 1,000 ML IV SCH ×2 (16:20→18:29)
[2022-10-04 17:08] LABS: Glucose,Whole Blood 88 mg/dL (70-110)
[2022-10-04 18:33] VITALS: RESP 16
[2022-10-04 20:55] LABS: Glucose,Whole Blood 117 mg/dL (70-110)
[2022-10-05] MEDS: CEFEPIME 2 GM in SODIUM CHLORIDE 0.9% 100 ML IVPB SCH ×2 (00:33→08:20)
[2022-10-05] MEDS: VANCOMYCIN 1,500 MG in SODIUM CHLORIDE 0.9% 500 ML 500 ML IVPB SCH ×2 (00:33→12:21)
[2022-10-05] MEDS: SODIUM CHLORIDE 0.9% 1,000 ML IV SCH ×2 (00:34→08:20)
[2022-10-05 06:03] LABS: African American GFR (CKD) >90 (>60 ml/min/1.73 sqM); Non-African American GFR(CKD) >90 (>60 ml/min/1.73 sqM)
[2022-10-05 07:15] LABS: Glucose,Whole Blood 106 mg/dL (70-110)
[2022-10-05] MEDS: INSULIN ASPART (NovoLOG) 100 UNIT/ML VIAL SQ SCH (07:50)
[2022-10-05] MEDS: lisinopriL 20 MG TAB PO SCH (08:20)
[2022-10-05] MEDS: FOLIC ACID 1 MG TAB PO SCH (08:20)
[2022-10-05] MEDS: amLODIPine 10 MG TAB PO SCH (08:20)
[2022-10-05] MEDS: metFORMIN 500 MG TAB PO SCH (08:20)
[2022-10-05] MEDS: ATORVASTATIN 20 MG TAB PO SCH (08:20)
[2022-10-05] MEDS: ASPIRIN 81 MG PO SCH (08:20)
[2022-10-05] MEDS: ENOXAPARIN 40 MG/0.4 ML SYRINGE SQ SCH (08:20)
[2022-10-05] MEDS: NAPROXEN 250 MG TAB PO SCH (08:25)
[2022-10-05 11:44] VITALS: BP 153/74; PULSE 69; TEMP 97.6
--- NOTE | 2022-10-05 17:12 | P.DS ---
Providers Date of admission: 10/01/22 15:05 Expected date of discharge: 10/05/22 Attending physician: Zev Jasso Consults: 10/01/22 15:09 Consult Physician Routine Consulting Provider: Wilfredo Mahoney Consult Reason/Comments: Established patient Do you want consulting provider notified?: Yes Primary care physician: Arlene Schumacher [facility] Course: Chief Complaint: Right face swelling This is a 77-year-old patient who follows with Dr. Po Schumacher. Chronic stable medical conditions include diabetes, hypertension, hyperlipidemia, osteoarthritis. Patient on the right side of the mouth had his tooth #31 diagnosed with a crack and had it pulled 2 weeks ago by . He's had 2 follow-up cesareans. Including packing been dense. About 10 days ago he startedseeing of swelling of the right side of the face. We just progressively became more painful. He's had chills at night including shivering and perspiring. He did having trouble eating and opening his mouth. He's received a course of clindamycin as outpatient. He did have a further follow-up with his civil rights investigator and was then sent to the ER. I started the patient IV vancomycin and cefepime. Also started him on naproxen. Overnight patient's feeling a bit better unable to open his mouth. He was barely able to eat prior to that. Did tolerate a soft breakfast this morning. 10/03/2022: Feeling better this morning. No fever. Tolerating a soft diet. He would open his mouth better. Was seen by Dr. mart last night. I discussed the case with Dr. mart last night. Getting IV cefepime and vancomycin. Cultures negative to rule out. Right facial jaw swelling going down. 10/04/2022: Able to open mouth better. Not fully so. Some right-sided pain still present. No fever no chills. Discussed with patient. We'll give another 24 hours of IV antibiotics. Blood cultures negative at 48 hours. 10/05/2022: Doing much better. Swelling in the right side greatly improved. Changed to oral Augmentin for 7 days. Warm water with bicarbonate mouthwash after meals. Questions answered. We'll follow up with Dr. Jimenez. Blood cultures negative. Discussion and discharge planning more than 35 minutes Past medical history to include: Diabetes, hypertension, hyperlipidemia, stroke arthritis. Social history: Patient does not smoke or drink alcohol. . Is a practicing claims attorney. Family history: Reviewed, noncontributory to presentation Physical examination: VITAL SIGNS: 97.6, 69, 16, 153 with 74, 98% room air GENERAL: Sitting up, awake, comfortable. EYES: Pupils equal. Conjunctiva normal. HEENT: Decreased firm swelling below the right mandible, able to open mouth better NECK: JVD not raised; masses not palpable. HEART: First and second heart sounds are normal; no edema. LUNGS: Respiratory rate normal; clear to auscultation. ABDOMEN: Soft, nontender, liver spleen not palpable, no masses palpable. PSYCH: Alert and oriented x3; mood and affect normal. MUSCULOSKELETAL:No Clubbing/cyanosis;muscles-grossly intact, oa INVESTIGATIONS, reviewed in the clinical context: Blood cultures: Negative 10/04/2022: White count 6.3 hemoglobin 13.5 platelets 356 10/03/2022: Potassium 4. 20 creatinine 0.96 White count 15.3 hemoglobin 14.1 platelets 306 potassium 4.1 BUN 27 creatinine 1.2 to pro-calcitonin 0.[address] submandibular area: Soft tissue thickening along the submandibular region of the right adjacent to the mandible correlate for phlegmon. Assessment and plan: - phlegmon at the site of extracted tooth 31 that had a fractured wrist. 2 weeks ago by . received outpatient clindamycin. vancomycin and IV cefepime. Blood cultures negative. Augmentin for 7 days -Essential hypertension Norvasc, ramipril Hyperlipidemia Lipitor -Diabetes mellitus type 2 on oral hypoglycemic Glucophage. Follow Accu-Cheks Disposition: Home Plan - Discharge Summary Discharge Rx Participant: No New Discharge Prescriptions: New Amoxic-Pot Clav 875-125Mg [Augmentin 875-125] 1 tab PO Q12HR 1 Days #14 tab Naproxen [Naprosyn] 250 mg PO TID #21 tab Continue Folic Acid 1 mg PO DAILY Aspirin EC [Ecotrin Low Dose] 81 mg PO DAILY metHOTREXate sodium [Methotrexate] 10 mg PO EDDY metFORMIN HCL ER [Glucophage XR] 500 mg PO TID Atorvastatin [Lipitor] 20 mg PO DAILY Acetaminophen-Codeine 300-30mg [Tylenol w/codeine #3] 1 tab PO Q4H PRN PRN Reason: Pain ramipriL [Altace] 10 mg PO BID amLODIPine [Norvasc] 10 mg PO DAILY Discontinued clindamycin HCL [Cleocin HCl] 300 mg PO TID Ibuprofen [Motrin Ib] 600 mg PO Q8H PRN PRN Reason: Fever And/ Or Pain Discharge Medication List Acetaminophen-Codeine 300-30mg [Tylenol w/codeine #3] 1 tab PO Q4H PRN 10/01/22 [History] Aspirin EC [Ecotrin Low Dose] 81 mg PO DAILY 10/01/22 [History] Atorvastatin [Lipitor] 20 mg PO DAILY 10/01/22 [History] Folic Acid 1 mg PO DAILY 10/01/22 [History] amLODIPine [Norvasc] 10 mg PO DAILY 10/01/22 [History] metFORMIN HCL ER [Glucophage XR] 500 mg PO TID 10/01/22 [History] metHOTREXate sodium [Methotrexate] 10 mg PO EDDY 10/01/22 [History] ramipriL [Altace] 10 mg PO BID 10/01/22 [History] Amoxic-Pot Clav 875-125Mg [Augmentin 875-125] 1 tab PO Q12HR 1 Days #14 tab 10/05/22 [Rx] Naproxen [Naprosyn] 250 mg PO TID #21 tab 10/05/22 [Rx] Follow up Appointment(s)/Referral(s): Edmundo Jimenez DDS [STAFF PHYSICIAN] - 10/08/22 9:30 am Arlene Schumacher MD [Primary Care Provider] - 1-2 days (office will call you with appoinment date/time.) Patient Instructions/Handouts: Dental Abscess (GEN), Mouth Care (DC) Discharge Disposition: HOME SELF-CARE
[2022-10-07] MEDS ORDERED: metHOTREXate sodium 2.5 MG TAB PO SCH (09:00)
== END 2022-10-05 13:40 | disposition home or self-care (01) | DRG 159 ==
LOC: EC 12:13 → 5NMEDONC 15:05
PROVIDERS: ADMIT Hospitalist; ATTEND Hospitalist
DX: K04.7 Periapical abscess without sinus (principal); E11.9 Type 2 diabetes mellitus without complications; I10 Essential (primary) hypertension; E78.5 Hyperlipidemia, unspecified; M27.3 Alveolitis of jaws; M19.90 Unspecified osteoarthritis, unspecified site; Z88.0 Allergy status to penicillin; Z79.84 Long term (current) use of oral hypoglycemic drugs; Z79.899 Other long term (current) drug therapy; Z79.82 Long term (current) use of aspirin; Z86.73 Personal history of transient ischemic attack (TIA), and cerebral infarction without residual deficits
CPT/HCPCS: 36415; 70491; 80048; 80053; 80202; 82565; 83605; 84145; 85025; 87040; 96365; 99285